=== PATIENT | male | born 1970 | race Two or more races ===

== ENCOUNTER 2017-04-05 22:44 | Emergency (ER) | payer MEDICAID ==
[~2017-04-05] VITALS: Ht 172.7 cm; Wt 86.2 kg
[2017-04-06] MEDS ORDERED: SODIUM CHLORIDE 0.9% 2,000 ML IV ONE (04:28)
[2017-04-06] MEDS ORDERED: ONDANSETRON HCL 4 MG/2 ML VIAL IV ONE (04:30)
[2017-04-06] MEDS ORDERED: HYDROmorphone HCL 2 MG/ML VL IM ONE (04:30)
[2017-04-06] MEDS ORDERED: cefTRIAXone SOD 1,000 MG VL IM ONE (04:30)
[2017-04-06] MEDS ORDERED: cefTRIAXone 1GM/50ML D5W 50 ML IV ONE (04:30)
[2017-04-06] MEDS ORDERED: VANCOMYCIN 1GM/250ML 250 ML IV ONE (04:30)
[2017-04-06 04:57] LABS: Basophils # (auto) 0.1 uL; Basophils % (auto) 0.4 % (0.0-2.0); Eosinophils # (auto) 0.1 uL; Hematocrit 39.1 % (41.0-53.0); Hemoglobin 13.1 g/dL (13.5-17.5); Lymphocytes # (auto) 1.7 uL; Lymphocytes % (auto) 11.5 % (10.0-50.0); Mean Corpuscular Hemoglobin 31.5 pg (28.0-32.0); Mean Corpuscular Hgb Conc. 33.5 g/dL (32.0-36.0); Mean Corpuscular Volume 93.9 fL (80.0-100.0); Mean Platelet Volume 7.3 fL (6.9-10.8); Monocytes # (auto) 0.8 uL; Monocytes % (auto) 5.5 % (0.0-12.0); Neutrophils # (auto) 12.1 uL; Neutrophils % (auto) 81.6 % (37.0-80.0); Platelet Count (auto) 248 10^3/uL (140-450); Red Cell Distribution Width 13.4 % (11.8-14.3); White Blood Cell 14.9 10^3/uL (4.4-10.8)
[2017-04-06] MEDS ORDERED: TETANUS-DIPTH-ACEL PERTUSSIS 0.5ML SYRG IM ONE (05:00)
[2017-04-06 05:11] LABS: INR 1.02 (0.9-1.15); Partial Thromboplastin Time 31.7 sec (22.64-33.71); Prothrombin Time 11.1 sec (9.37-12.3)
[2017-04-06 05:18] LABS: Albumin 3.3 g/dL (3.4-5.0); BUN/Creatinine Ratio 15.5; Bilirubin, Total 0.5 mg/dL (0.2-1.0); Calcium 7.4 mg/dL (8.5-10.1); Potassium 3.2 mmol/L (3.5-5.1); Total Protein 7.2 g/dL (6.4-8.2)
[2017-04-06] MEDS ORDERED: POTASSIUM CHL 10% (20 MEQ/15ML) 15ml ORAL SOLN PO ONE (09:30)
[2017-04-06 11:14] VITALS: BP 125/98
[2017-04-06] MEDS ORDERED: KETOROLAC TROMETH 30 MG/ML 1ML VIAL IV ONE (11:45)
== END 2017-04-06 11:42 | disposition short-term general hospital (02) ==
LOC: ER 22:44
DX: S69.91XA Unspecified injury of right wrist, hand and finger(s), initial encounter (principal); L03.113 Cellulitis of right upper limb; E87.6 Hypokalemia; E46 Unspecified protein-calorie malnutrition; B99.9 Unspecified infectious disease; W22.8XXA Striking against or struck by other objects, initial encounter; Y93.89 Activity, other specified; Y99.8 Other external cause status; Y92.89 Other specified places as the place of occurrence of the external cause
CPT/HCPCS: 36415; 71020; 73130; 73200; 80053; 83036; 85025; 85610; 85652; 85730; 90471; 90715; 96365; 96368; 96372; 96375; 99285; J0696; J1170; J1885; J2405; J3370; J7030